=== PATIENT | female | born 2005 | race Caucasian/White ===

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

== ENCOUNTER 2025-04-14 08:53 | Outpatient (RCR) | payer OTHER, SELFPAY ==
--- NOTE | 2025-04-14 09:57 | OPREHPOC ---
Outpatient Therapy Plan of Care This is a Multidisciplinary Plan of Care that may contain components documented by all disciplines (PT, OT, and ST.) PT Problem 1 PT Problem #1 Knowledge Deficit PT Goal 1 Goal / Goal Update The patient will be independent in a home exercise program. Target Visit 4 PT Problem 2 PT Problem #2 Pain PT Goal 1 Goal / Goal Update The patient will report no greater than 1/10 right shoulder pain with lifting and carrying. Target Visit 24 PT Problem 3 PT Problem #3 Impaired Range of Motion PT Goal 1 Goal / Goal Update The patient will demonstrate 160 degrees passive right shoulder flexion to progress to AROM. Target Visit 12 PT Goal 2 Goal / Goal Update The patient will demonstrate right shoulder flexion AROM to 160 degrees to improve overhead reaching. The patient will demonstrates right ER functional reach to T2 and functional IR to T12 to improve ADL ability. Target Visit 24 PT Problem 4 PT Problem #4 Impaired Strength PT Goal 1 Goal / Goal Update The patient will demonstrate 4/5 or greater right shoulder strength to improve ability to lift and return to softball activities. The patient will lift 5# overhead for 10 repetitions. Target Visit 24 PT Problem 5 PT Problem #5 Impaired Functional Mobility PT Goal 1 Goal / Goal Update The patient will demonstrate 20% or less self perceived disability per the Quick DASH questionnaire. The patient will demonstrate good mechanics with throwing with the right UE to return to softball. Target Visit 24
--- NOTE | 2025-04-14 09:57 | PTOPEVAL1 ---
Assessment and note entered by Hollie Morley, PT Evaluation Information Assessment Status Evaluation Diagnosis s/p R shoulder labrum repair ICD-10 Condition Codes (PT) Pain in right shoulder M25.511,Encounter for other orthopedic aftercare Z47.89 Onset 03/23/25 Subjective Information Colton Carvajal reports she tore her labrum playing softball. She reports she was having issues with her shoulder prior to the injury and she would have to take days off of throwing. She reports around the 29 of December she dove back to a base and her right shoulder dislocated and relocated spontaneously. She went to the [facility] 2 days after the injury and had an exam and x-rays . A piece of bone was found floating so she had a MRI and was diagnosed with a SLAP tear. She had surgery on 03/23/25 and was in an abduction sling until the 2 week follow up. She now has a regular sling until 6 weeks post op. She notes the shoulder was very painful the first week after surgery but is feeling better now. 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 She is also right hand dominant and has limitations with ADLs currently. Reported Pain Level Pain Score 4: Self Report Assessment PT Clinical Summary Colton Carvajal presents 3 weeks s/p right shoulder labral repair. She injured her shoulder playing softball in December 2024. She reports pain is decreasing but she is limited with daily activities and is unable to play collegiate softball due to her surgery. She demonstrates well healing arthroscopic portals on the right shoulder, decreased right shoulder active and passive ROM, decreased right shoulder strength, and decreased functional abilities. She will benefit from skilled PT to address these limitations. Treatment will follow her post op protocol. Plan of Care Interventions Electrical Stimulation,Hot Pack/Cold Pack,Manual Therapy,Neuro Re-education,Patient/Caregiver Education,Therapeutic Activities,Therapeutic Exercise PT Services Indicated Yes Treatment Frequency and 2 times a week for 12 visits Duration These treatments will address the objective and functional deficits as defined above. The patient will be advanced safely and appropriately in order for the patient to progress towards his/her prior level of function. Additional exercises will be introduced and as well as a comprehensive home exercise program upon discharge, if needed, ?to ensure carryover of functional gains achieved in the clinic. This treatment plan has been reviewed and agreement upon by the patient.
--- NOTE | 2025-05-05 12:35 | OPREHPOC ---
Outpatient Therapy Plan of Care This is a Multidisciplinary Plan of Care that may contain components documented by all disciplines (PT, OT, and ST.) PT Problem 1 PT Problem #1 Knowledge Deficit PT Goal 1 Goal / Goal Update The patient will be independent in a home exercise program. Target Visit 4 Progress Met PT Problem 2 PT Problem #2 Pain PT Goal 1 Goal / Goal Update The patient will report no greater than 1/10 right shoulder pain with lifting and carrying. Target Visit 24 Progress Partially Met PT Problem 3 PT Problem #3 Impaired Range of Motion PT Goal 1 Goal / Goal Update The patient will demonstrate 160 degrees passive right shoulder flexion to progress to AROM. Target Visit 12 Progress Not Met PT Goal 2 Goal / Goal Update The patient will demonstrate right shoulder flexion AROM to 160 degrees to improve overhead reaching. The patient will demonstrates right ER functional reach to T2 and functional IR to T12 to improve ADL ability. Target Visit 24 Progress Not Met PT Problem 4 PT Problem #4 Impaired Strength PT Goal 1 Goal / Goal Update The patient will demonstrate 4/5 or greater right shoulder strength to improve ability to lift and return to softball activities. The patient will lift 5# overhead for 10 repetitions. Target Visit 24 Progress Not Met PT Problem 5 PT Problem #5 Impaired Functional Mobility PT Goal 1 Goal / Goal Update The patient will demonstrate 20% or less self perceived disability per the Quick DASH questionnaire. The patient will demonstrate good mechanics with throwing with the right UE to return to softball. Target Visit 24 Progress Not Met
--- NOTE | 2025-05-05 12:35 | PTOPPROGNS ---
Assessment and note entered by JT File, PT Evaluation Information Assessment Status Progress Diagnosis s/p R shoulder labrum repair ICD-10 Condition Codes (PT) Pain in right shoulder M25.511,Encounter for other orthopedic aftercare Z47.89 Onset 03/23/25 Subjective Information kiko reports the shoulder feels good and she has no pain at rest. she reports it still feels tight when reaching overhead. she reports she has a follow up with her surgeon today at 14:45. she reports she is compliant with her sling wear and HEP. she is 6 weeks and 1 day post op today. Assessment PT Clinical Summary ms. basilio presents to skilled PT for her 7th skilled therapy visit and being 6 weeks and 1 day post op from R arthroscopic shoulder surgery. she has progressed in rom of the R shoulder, but is still limited due to tightness and some pain. continued skilled PT is indicated with progression along her plan into phase 2 after she sees the surgeon today. Plan of Care Interventions Electrical Stimulation,Hot Pack/Cold Pack,Manual Therapy,Neuro Re-education,Patient/Caregiver Education,Therapeutic Activities,Therapeutic Exercise PT Services Indicated Yes Treatment Frequency and continue skilled PT per initial POC Duration These treatments will address the objective and functional deficits as defined above. The patient will be advanced safely and appropriately in order for the patient to progress towards his/her prior level of function. Additional exercises will be introduced and as well as a comprehensive home exercise program upon discharge, if needed, ?to ensure carryover of functional gains achieved in the clinic. This treatment plan has been reviewed and agreement upon by the patient.
--- NOTE | 2025-05-20 09:04 | PTOPPROG ---
Assessment and note entered by Hollie Morley, PT Evaluation Information Assessment Status Progress Diagnosis s/p R shoulder labrum repair ICD-10 Condition Codes (PT) Pain in right shoulder M25.511,Encounter for other orthopedic aftercare Z47.89 Onset 03/23/25 Subjective Information Colton reports her right shoulder is doing well. She is not noting much pain in the shoulder just muscle fatigue after PT sessions. She has been noticing pain around the right inner elbow and bicep lately and reports she has dealt with biceps tendonitis in the past. She will be returning to college on 05/27/25 and plans to transfer her therapy care to the seeing eye dog trainer at her school . Assessment PT Clinical Summary Ms. Carvajal presents to skilled PT for her 12th skilled therapy visit and being 8 weeks and 2 days post op from R arthroscopic shoulder surgery. She continues to progress with right shoulder AROM and strength but remains limited. She is progressing with her protocol well. We will continue skilled PT for one additional visit and then she will transfer her care to her seeing eye dog trainer at her college. Plan of Care Interventions Electrical Stimulation,Hot Pack/Cold Pack,Manual Therapy,Neuro Re-education,Patient/Caregiver Education,Therapeutic Activities,Therapeutic Exercise PT Services Indicated Yes Treatment Frequency and continue skilled PT for one additional visit Duration These treatments will address the objective and functional deficits as defined above. The patient will be advanced safely and appropriately in order for the patient to progress towards his/her prior level of function. Additional exercises will be introduced and as well as a comprehensive home exercise program upon discharge, if needed, ?to ensure carryover of functional gains achieved in the clinic. This treatment plan has been reviewed and agreement upon by the patient.
--- NOTE | 2025-05-25 15:42 | OPREHPOC ---
Outpatient Therapy Plan of Care This is a Multidisciplinary Plan of Care that may contain components documented by all disciplines (PT, OT, and ST.) PT Problem 1 PT Problem #1 Knowledge Deficit PT Goal 1 Goal / Goal Update The patient will be independent in a home exercise program. Target Visit 4 Progress Met PT Problem 2 PT Problem #2 Pain PT Goal 1 Goal / Goal Update The patient will report no greater than 1/10 right shoulder pain with lifting and carrying. Target Visit 24 Progress Partially Met PT Problem 3 PT Problem #3 Impaired Range of Motion PT Goal 1 Goal / Goal Update The patient will demonstrate 160 degrees passive right shoulder flexion to progress to AROM. Target Visit 12 Progress Met PT Goal 2 Goal / Goal Update The patient will demonstrate right shoulder flexion AROM to 160 degrees to improve overhead reaching. -met The patient will demonstrates right ER functional reach to T2 and functional IR to T12 to improve ADL ability. Target Visit 24 Progress Partially Met PT Problem 4 PT Problem #4 Impaired Strength PT Goal 1 Goal / Goal Update The patient will demonstrate 4/5 or greater right shoulder strength to improve ability to lift and return to softball activities. The patient will lift 5# overhead for 10 repetitions. Target Visit 24 Progress Not Met PT Problem 5 PT Problem #5 Impaired Functional Mobility PT Goal 1 Goal / Goal Update The patient will demonstrate 20% or less self perceived disability per the Quick DASH questionnaire. -met The patient will demonstrate good mechanics with throwing with the right UE to return to softball. -not met Target Visit 24 Progress Partially Met
--- NOTE | 2025-05-25 15:42 | PTOPDC ---
Assessment and note entered by Jeannie Doe, PT Evaluation Information Assessment Status Discharge Diagnosis s/p R shoulder labrum repair ICD-10 Condition Codes (PT) Pain in right shoulder M25.511,Encounter for other orthopedic aftercare Z47.89 Onset 03/23/25 Subjective Information Colton presents for her final skilled PT visit at the clinic before returning to college on the . She has been progressing through her protocol well following arthroscopic R shoulder surgery. 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 Reported Pain Level Pain Score 0,0: Self Report Assessment PT Clinical Summary Ms. Carvajal has attended 13 skilled PT visits following arthroscopic R shoulder surgery. She has only mild pain and soreness from PT sessions and has been progressing through her post-op protocol well. She has met goals regarding HEP adherence and R shoulder PROM and will be transitioning her rehab to her school's animal trainer where she will make further progress in R shoulder strength in preparation for resuming college softball. She will be discharged this date as she will be returning to school on the . Plan of Care PT Services Indicated No
== END 2025-05-25 20:50 | disposition home or self-care (01) ==
LOC: CHSPT 08:53
DX: S43.431A Superior glenoid labrum lesion of right shoulder, initial encounter (principal)
CPT/HCPCS: 97110; 97112; 97150; 97161